=== PATIENT | female | born 1970 | race Caucasian/White ===

== ENCOUNTER → 2018-12-10 | Emergency (ER) | payer OTHER ==
[~2018-12-10] VITALS: Ht 170.2 cm; Wt 97.5 kg
[~2018-12-10] MED LIST: ATIVAN2 MG PO; CYMBALTA60 MG PO; DEPLIN-ALGAL O1 EAC1 PO; OXICODONE PO; PREMARIN1.25 MG PO; PRISTIQ ER100 MG PO; TOPAMAX25 M1 PO; TOPAMAX25 MG PO; VISTARIL50 MG PO
== END | disposition left against medical advice (07) ==
LOC: ER 02:52
DX: Z53.20 Procedure and treatment not carried out because of patient's decision for unspecified reasons (principal)